=== PATIENT | male | born 1990 | race Caucasian/White ===

== ENCOUNTER → 2017-03-13 10:48 | Emergency (ER) | payer OTHER ==
[~2017-03-13 10:48] MED LIST: FLEX PO; MEDROLPAK4 PO; NO HOME MEDS; NORCO1 TA2 PO; PCET PO
== END | disposition home or self-care (01) ==
LOC: ER 10:48
DX: M54.12 Radiculopathy, cervical region (principal)
CPT/HCPCS: 72040; 96372; 99283; A9270-GY

== ENCOUNTER 2017-03-18 16:24 | Observation (INO) | payer OTHER ==
--- NOTE | ~2017-03-18 | OP ---
Record Of Operation [facility] [address] [place]. [address] NAME: LIZETTE SINCLAIR JR : 86 STATUS : ADM Katalina PAT#: [id number] AGE: 26 ADM/REG DATE : 03/18/17 MR#: [id number] REPORT SERV DATE: 03/19/17 DICTATED BY: PRAVIN GARCIA DATE: 03/19/17 REPORT STATUS : Draft TRANSCRIBED BY: MODL DATE: 03/19/17 DATE OF PROCEDURE: 03/19/2017 POSTOPERATIVE DIAGNOSIS: Cervical radiculopathy with left upper extremity weakness, C6-C7 disk herniation and stenosis, with spinal cord and nerve root compression. POSTOPERATIVE DIAGNOSIS: Cervical radiculopathy with left upper extremity weakness, C6-C7 disk herniation and stenosis, with spinal cord and nerve root compression. PROCEDURE: Anterior cervical diskectomy and fusion, C6-C7; placement of Medtronic PEEK interbody spacer, C6-C7; allograft, bone matrix, neuromonitoring, operative microscope, anterior cervical plate from Medtronic, C6-C7. SURGEON: Pravin Garcia DO. ANESTHESIA: General. ESTIMATED BLOOD LOSS: 5 mL. COMPLICATIONS: None. INDICATIONS: The patient is a pleasant 26-year-old, who was seen in my office yesterday with progressive weakness in the left upper extremity with intractable pain. Due to his progressive neurological decline, I admitted him to the hospital for planned surgery today. After discussion of risks and benefits, he elected to proceed. DESCRIPTION OF PROCEDURE: I identified the patient in the holding area, consent was obtained, went to the operating room, underwent general anesthesia with endotracheal intubation, prepped and draped in usual sterile fashion, operative safety pause was performed, and then we proceeded. A left transverse incision was made over the C6-C7 level and taken through the platysma. Dissection was carried out down to the anterior aspect of the spine. Longus colli was elevated. [place] pin was placed and lateral fluoroscopic image was used to verify operative level. Distraction pins were placed at C6 and C7. Distraction was applied. Operative microscope was brought in. A knife was used to perform an annulotomy. Free disk material were removed with a pituitary, anterior osteophytes were removed with Kerrison. Posterior osteophytes and uncinate processes were taken down with a kylah bur. Foraminotomy was performed with a Kerrison. There was a large extruded piece of disk posterior to the posterior longitudinal ligament on the left side causing severe compression that was removed. Endplates prepared with curettes, rasp, and a cutting bur. Trial spacer was implanted. Medtronic PEEK interbody spacer with allograft bone matrix was placed at C6-C7 [place] pins were removed. Anterior cervical plate from Medtronic was placed at C6-C7. Screws were placed, final tightened, and locking mechanisms were engaged. Irrigation was performed. Hemostasis was achieved. Final AP and lateral fluoroscopic images were obtained. A layered closure was performed. Sterile dressings were applied. The patient awoke, extubated, and taken recovery room in stable condition. Record Of Operation [address] [address] NAME: LIZETTE SINCLAIR JR : 86 STATUS : ADM Katalina PAT#: [id number] AGE: 26 ADM/REG DATE : 03/18/17 MR#: [id number] REPORT SERV DATE: 03/19/17 DICTATED BY: PRAVIN GARCIA DATE: 03/19/17 REPORT STATUS : Draft TRANSCRIBED BY: STEPHANIE DATE: 03/19/17 OPERATIVE FINDINGS: C6-C7 disk herniation with large extruded fragment causing severe compression on the left side. No sustained neuromonitoring alerts. CHANTE/STEPHANIE Pravin Garcia DO / [id number] CC: Pravin Garcia DO
--- NOTE | ~2017-03-18 | HP ---
History And Physical [place] [id number] [facility] [place]. [address] NAME: LIZETTE SINCLAIR JR : 86 STATUS : ADM Katalina PAT#: [id number] AGE: 26 ADM/REG DATE : 03/18/17 MR#: [id number] REPORT SERV DATE: 03/19/17 DICTATED BY: PRAVIN BROOKS DATE: 03/19/17 REPORT STATUS : Draft TRANSCRIBED BY: MODJuvenal DATE: 03/19/17 DATE OF ADMISSION: 03/18/2017 CHIEF COMPLAINT: Intractable neck pain; left upper extremity pain; paresthesias; and weakness. HISTORY OF PRESENT ILLNESS: The patient is a pleasant 26-year-old, who I saw in the office on 03/18/2017. He was having progressive weakness in his left upper extremity as well as paresthesias and intractable neck and arm pain. After discussion of the risks and benefits and concern over his progressive neurologic decline, I did recommend admission to the hospital with plan for surgery on 03/19/2017, to prevent further neurologic decline. REVIEW OF SYSTEMS: He denies chest pain, shortness of breath, and bowel or bladder changes. ALLERGIES: DENIED. HOME MEDICATIONS: Flexeril, hydrocodone, and steroid Dosepak. FAMILY HISTORY: Noncontributory. PAST MEDICAL HISTORY: Otherwise negative. PHYSICAL EXAMINATION: GENERAL: The patient is healthy appearing. No acute distress. PSYCHIATRIC: Alert and oriented x3. Normal mood and affect. Gait was normal. HEART: Regular rate and rhythm. LUNGS: Clear to auscultation. ABDOMEN: Soft, nontender, and nondistended with good bowel sounds. BREASTS: Deferred. RECTAL: Deferred. NEUROLOGIC: The patient had 3+ out of 5 in the left intrinsics; 4- out of 5 left triceps; and 4/5 for the left wrist extensors. Right upper extremity 5/5 diffusely. Decreased sensation in the C7 distribution on the left upper extremity. Positive Garg's bilaterally. IMAGING: I did review the MRI scan. He did have a left C6-C7 disk herniation with some central and foraminal stenosis with spinal cord and nerve root compression. ASSESSMENT: Left upper extremity paresthesias and weakness, cervical radiculopathy, cervical disk herniation and stenosis, and progressive neurologic decline. PLAN: The patient is being admitted to the hospital for planned surgery on 03/19/2017. History And Physical [place] [address] [address] NAME: LIZETTE SINCLAIR JR : 86 STATUS : ADM Katalina PAT#: [id number] AGE: 26 ADM/REG DATE : 03/18/17 MR#: [id number] REPORT SERV DATE: 03/19/17 DICTATED BY: PRAVIN BROOKS DATE: 03/19/17 REPORT STATUS : Draft TRANSCRIBED BY: STEPHANIE DATE: 03/19/17 CHANTE/STEPHANIE Pravin Brooks DO / [id number] CC: Pravin Brooks DO
[~2017-03-18 16:24] MED LIST changes: -FLEX PO; -MEDROLPAK4 PO; -NORCO1 TA2 PO; -PCET PO
[2017-03-18 18:12] LABS: WBC (NOT ORDERED) (RFLEX) 0 (0-5)
[2017-03-18 18:38] LABS: BASOPHILS 0.4 %; BASOPHILS ABSOLUTE 0.04 10/3/uL (0.0-0.16); EOSINOPHILS ABSOLUTE 0.11 10/3/uL (0.0-0.53); HEMATOCRIT 46.6 % (40.0-51.0); HEMOGLOBIN 16.2 g/dL (13.6-17.8); IMMATURE GRANULOCYTES 0.7 %; IMMATURE GRANULOCYTES ABSOLUTE 0.07 10/3/uL (0.0-0.11); LYMPHOCYTES 26.8 %; LYMPHOCYTES ABSOLUTE 2.82 10/3/uL (0.67-4.30); MEAN CORPUS HGB CONC 34.8 g/dL (32.0-36.0); MEAN CORPUSCULAR VOLUME 91.9 fL (80-100); MEAN PLATELET VOLUME 11.2 fL (9.2-13.0); MONOCYTES 5.8 %; MONOCYTES ABSOLUTE 0.61 10/3/uL (0.21-1.20); NEUTROPHILS 65.3 %; NEUTROPHILS ABSOLUTE 6.89 10/3/uL (2.02-8.40); PLATELET COUNT 187 10/3/uL (150-400); RBC DISTRIBUTION WIDTH 12.9 % (12.0-16.0); RED CELL COUNT 5.07 10/6/uL (4.7-6.1); WHITE BLOOD CELLS 10.5 10/3/uL (4.5-10.5)
[2017-03-18 18:43] LABS: MANUAL DIFF NO %
[2017-03-18 18:56] LABS: A/G RATIO 1.4 (0.7-1.9); ALBUMIN 4.3 G/DL (3.5-5.0); ALKALINE PHOSPHATASE 60 U/L (45-117); BUN (BLOOD UREA NITROGEN) 25 MG/DL (6-23); CALCIUM, SERUM 8.9 MG/DL (8.5-10.4); CHLORIDE, SERUM 104 MMOL/L (96-112); CO2 (CARBON DIOXIDE) 30 MMOL/L (24-34); CREATININE 1.01 MG/DL (0.70-1.30); GFR AFRICAN AMERICAN 117 ML/MIN (>=60); GFR NON AFRICAN AMERICAN 101 ML/MIN (>=60); GLOBULIN 3.1 G/DL (2.5-4.1); GLUCOSE, SERUM 84 MG/DL (60-99); SGOT(AST) 8 U/L (5-40); SGPT(ALT) 33 U/L (5-65); SODIUM, SERUM 142 MMOL/L (135-148); TOTAL BILIRUBIN 0.4 MG/DL (0-1.2); TOTAL PROTEIN 7.4 G/DL (6.0-8.5)
[2017-03-18 19:09] LABS: ASCORBIC ACID (UR NOT ORDER) NEG (NEG); BILIRUBIN, URINE NEGATIVE (NEG); KETONE, URINE NEGATIVE (NEG); LEUKOCYTE ESTERASE(NOT OR NEG (NEG)
[2017-03-18] MEDS ORDERED: NORCO1 TA2 PO (19:10)
[2017-03-18] MEDS ORDERED: FLEX PO (19:11)
[2017-03-18] MEDS ORDERED: MEDROLPAK4 PO (19:12)
[2017-03-19] MEDS ORDERED: PCET PO (15:03)
== END 2017-03-19 17:30 | disposition home or self-care (01) ==
LOC: 3SO 16:24
PROVIDERS: Orthopaedic Surgery
PROC: 0RB30ZZ Excision of Cervical Vertebral Disc, Open Approach (ICD-10-PCS; 2017-03-19)
PROC: 0RG10AJ Fusion of Cervical Vertebral Joint with Interbody Fusion Device, Posterior Approach, Anterior Column, Open Approach (ICD-10-PCS; principal; 2017-03-19 08:15)
DX: M50.123 Cervical disc disorder at C6-C7 level with radiculopathy (principal); M48.02 Spinal stenosis, cervical region; J44.9 Chronic obstructive pulmonary disease, unspecified; F17.210 Nicotine dependence, cigarettes, uncomplicated; Z79.899 Other long term (current) drug therapy
CPT/HCPCS: 71010; 80053; 81001; 82962; 85025; 88304; 88311; 93005; A9270-GY; C1713; G0378; J0330; J0690; J1170; J2250; J2270; J2370; J2405; J2710; J3010